=== PATIENT | female | born 1950 | race African-American/Black ===

== ENCOUNTER → 2017-01-08 | Outpatient (CLI) | payer MEDICARE ==
[2013-11-08 10:34] VITALS: BP 161/82
[~2017-01-08] MED LIST: ATEN100T PO; CLON0.2T PO; DICL50TA4 PO; DIPH-426 PO; DULO30CA2 PO; HYDR25TA9 PO; LOSA100T6 PO; MIRT15TA3 PO; PRAV40TA2 PO; PYRI60TA PO; TIZA2CAP PO
--- NOTE | 2017-01-08 12:01 | RAD ---
APPROVED REPORT Patient Location: OUT-PATIENT Indications Uncontrolled HTN Renal Artery Doppler Right Renal Artery Left Renal Arter y Proximal 150.0/32.0 cm/secProximal 89.0/23.0 cm/sec Mid 128.0/28.0 cm/secMid 147.0/32.0 cm/sec Distal 187.0/56.0 cm/secDistal 123.0/26.0 cm/sec Renal/Aorta Ratio 1.90Renal/Aorta Ratio 1.50 Prox. Resistive Index 0.78Prox. Resistive Index 0.75 Mid Resistive Index 0.78Mid Resistive Index 0.79 Distal Resistive Index 0.70Distal Resistive Index 0.79 Rt. Segmental A. 23.0/9.0 cm/secLt. Segmental A. 40.0/13.0 cm/sec Renal Measurements RightLeft Kidney Ebehnu52.5 cm cmKidney Qddfxg26 cm cm Right Additional FindingsLeft Additional Findings Findings Grayscale images of the bilateral kidneys do not reveal any evidence of hypertrophy. Spectral waveforms and color Doppler of the aorta and renal arteries were obtained with velocities as noted above. The renal to aortic ratios are grossly normal and velocities are also within normal bustos its at less than 180 cm/s. Critical Notification Critical Value: No <Conclusion> No evidence of renal artery stenosis.
--- NOTE | 2017-01-08 12:06 | CARD ---
APPROVED REPORT EXAM: Two-dimensional and M-mode echocardiogram with Doppler and color Doppler. Other Information Quality : Good INDICATION Hypertension/HCVD 2D DIMENSIONS Left Atrium(2D)3.9 (1.6-4.0cm)IVSd1.4 (0.7-1.1cm) Aortic Root(2D)2.9 (2.0-3.7cm)LVDd4.4 (3.9-5.9cm) LVOT Diameter2.0 (1.8-2.4cm)PWd1.4 (0.7-1.1cm) LVDs2.9 (2.5-4.0cm)FS (%) 34.3 % SV55.1 mlLVEF(%)63.6 (>50%) Aortic Valve AoV Peak Israel.199.1cm/sAoV VTI40.2cm AO Peak GR.15.9mmHgLVOT Peak Israel.189.3cm/s AO Mean GR.8mmHgAVA (VMAX)2.85cm2 APARNA (VTI)3.26iz1XJ P 1/2 Ghsc070yg Mitral Valve MV E Kdgtuwtd91.6cm/sMV DECEL PKGS253xl MV A Jcwaqnmc25.8cm/sE/A Ratio0.5 Tricuspid Valve TR P. Tdfrlrfs056lz/sRAP DXFBWKVA1kmXe TR Peak Gr.92kuIaNBRO99seJq LEFT VENTRICLE The left ventricle is normal size. There is moderate concentric left ventricular hypertrophy. Left ve ntricle systolic function is normal. The Ejection Fraction is 55-60%. There is normal LV segmental wa ll motion. Transmitral Doppler flow pattern is abnormal. RIGHT VENTRICLE The right ventricle is normal size. The right ventricular systolic function is normal. ATRIA The left atrium size is normal. The right atrium size is normal. The interatrial septum is intact wit h no evidence for an atrial septal defect or patent foramen ovale as noted on 2-D or Doppler imaging. AORTIC VALVE The aortic valve is sclerotic but opens well. Doppler and Color Flow revealed mild aortic regurgitati on. There is no significant aortic valvular stenosis. MITRAL VALVE The mitral valve is calcified but opens well. There is no evidence of mitral valve prolapse. There is no mitral valve stenosis. Doppler and Color-flow revealed mild mitral regurgitation. TRICUSPID VALVE The tricuspid valve is normal in structure and function. Doppler and Color Flow revealed mild to mode rate tricuspid regurgitation. There is mild pulmonary hypertension. The PA pressure was estimated at 43 mmHg. There is no tricuspid valve prolapse or vegetation. There is no tricuspid valve stenosis. PULMONIC VALVE Doppler and Color Flow revealed no pulmonic valvular regurgitation. There is no pulmonic valvular prudence nosis. GREAT VESSELS The aortic root is normal in size. The ascending aorta is normal in size. The IVC is normal in size a nd collapses >50% with inspiration. PERICARDIAL EFFUSION There is no pleural effusion. There is no evidence of significant pericardial effusion. Critical Notification Critical Value: No <Conclusion> Left ventricle systolic function is normal. The Ejection Fraction is 55-60%. There is normal LV segmental wall motion. Doppler and Color Flow revealed mild aortic regurgitation. Doppler and Color-flow revealed mild mitral regurgitation. Doppler and Color Flow revealed mild to moderate tricuspid regurgitation. There is mild pulmonary hyp ertension. The PA pressure was estimated at 43 mmHg.
== END | disposition home or self-care (01) ==
LOC: US 09:34
PROVIDERS: ATTEND Internal Medicine Cardiovascular Disease
DX: I08.3 Combined rheumatic disorders of mitral, aortic and tricuspid valves (principal); I10 Essential (primary) hypertension; I27.20 Pulmonary hypertension, unspecified
CPT/HCPCS: 93306; 93975

== ENCOUNTER → 2018-02-25 | Outpatient (CLI) | payer MEDICARE, OTHER ==
[2013-11-08 10:34] VITALS: BP 161/82
[~2018-02-25] MED LIST changes: +HYDR-2145 PO; -HYDR25TA9 PO; +LOSA100T14 PO; -LOSA100T6 PO
--- NOTE | 2018-02-25 13:06 | CARD ---
MR#: [id number] Date of Study: 02/25/2018 Ordering Physician: SCOTTY SNOW, Referring Physician: SCOTTY SNOW, Tech: Hannah Moran APPROVED REPORT EXAM: Two-dimensional and M-mode echocardiogram with Doppler and color Doppler. Other Information Quality : AverageHR: 55bpm INDICATION Valvular Heart Disease RISK FACTORS Hypertension Hyperlipidemia Smoking 2D DIMENSIONS RVDd3.0 (2.9-3.5cm)Left Atrium(2D)3.5 (1.6-4.0cm) IVSd1.2 (0.7-1.1cm)Aortic Root(2D)3.5 (2.0-3.7cm) LVDd4.4 (3.9-5.9cm)LVOT Diameter2.1 (1.8-2.4cm) PWd1.5 (0.7-1.1cm)LVDs2.6 (2.5-4.0cm) FS (%) 39.2 %SV59.9 ml LVEF(%)69.9 (>50%) Aortic Valve AoV Peak Israel.180.9cm/sAoV VTI39.1cm AO Peak GR.13.1mmHgLVOT Peak Israel.136.9cm/s LVOT VTI 30.36cmAO Mean GR.6mmHg APARNA (VMAX)1.52cz1EKT (VTI)2.69cm2 AI P 1/2 Dunl925if Mitral Valve MV E Xlrdnzmr44.1cm/sMV E Peak Gr.132mmHg MV DECEL ZBOO712vxYQ A Nyasqwoc350.1cm/s MV GIW12uuU/A Ratio0.6 MVA (PHT)2.29cm2 TDI E/Lateral E'13.6E/Medial E'13.9 Pulmonary Valve PV Peak Yjfqdwpe08.1cm/sPV Peak Grad.4mmHg Tricuspid Valve TR P. Funfzkdk103oq/sRAP NSKLZOHD5kiWc TR Peak Gr.38svDjXYMN82iuVa Pulmonary Vein S1 Vagshfhr85.4cm/sD2 Dbjrpigd62.4cm/s PVa doualdoq402velw LEFT VENTRICLE The left ventricle is normal size. There is moderate concentric left ventricular hypertrophy. The lef t ventricular systolic function is normal and the ejection fraction is within normal range. The Eject ion Fraction is >55%. There is normal LV segmental wall motion. Transmitral Doppler flow pattern is G rade I-abnormal relaxation pattern. RIGHT VENTRICLE The right ventricle is normal size. There is normal right ventricular wall thickness. The right ventr icular systolic function is normal. ATRIA The left atrium size is normal. The right atrium size is normal. The interatrial septum is intact wit h no evidence for an atrial septal defect or patent foramen ovale as noted on 2-D or Doppler imaging. AORTIC VALVE The aortic valve is normal in structure and function. Doppler and Color Flow revealed moderate aortic regurgitation. There is no significant aortic valvular stenosis. MITRAL VALVE The mitral valve is thickened but opens well. There is no evidence of mitral valve prolapse. There is no mitral valve stenosis. Doppler and Color-flow revealed trace to mild mitral regurgitation. TRICUSPID VALVE The tricuspid valve is not well visualized. Doppler and Color Flow revealed trace to mild tricuspid r egurgitation. There is no tricuspid valve stenosis. PULMONIC VALVE The pulmonic valve is not well visualized. Doppler and Color Flow revealed trace pulmonic valvular re gurgitation. There is no pulmonic valvular stenosis. GREAT VESSELS The aortic root is normal in size. The IVC is normal in size and collapses >50% with inspiration. PERICARDIAL EFFUSION There is no evidence of significant pericardial effusion. Critical Notification Critical Value: No <Conclusion> The left ventricular systolic function is normal and the ejection fraction is within normal range. Th e Ejection Fraction is >55%. There is normal LV segmental wall motion. Doppler and Color Flow revealed moderate aortic regurgitation. There is mild systolic anterior motion of the anterior mitral leaflet, that may be lead to turbulent flow in the LVOT. Signed by : Scotty Snow, Electronically Approved : 02/25/2018 13:04:29
== END | disposition home or self-care (01) ==
LOC: ECHO 10:05
PROVIDERS: ATTEND Internal Medicine Cardiovascular Disease
DX: I35.1 Nonrheumatic aortic (valve) insufficiency (principal); I10 Essential (primary) hypertension; E78.5 Hyperlipidemia, unspecified; F17.200 Nicotine dependence, unspecified, uncomplicated
CPT/HCPCS: 93306

== ENCOUNTER → 2019-02-15 | Outpatient (CLI) | payer MEDICARE, OTHER ==
[2013-11-08 10:34] VITALS: BP 161/82
--- NOTE | 2019-02-15 14:46 | CARD ---
MR#: [id number] Date of Study: 02/15/2019 Ordering Physician: SCOTTY DOMINGUEZ, Referring Physician: SCOTTY DOMINGUEZ, Tech: Kristine Nesbitt [facility] APPROVED REPORT EXAM: Two-dimensional and M-mode echocardiogram with Doppler and color Doppler. Other Information Quality : Good INDICATION Aortic Insufficiency 2D DIMENSIONS Left Atrium(2D)3.8 (1.6-4.0cm)IVSd1.7 (0.7-1.1cm) Aortic Root(2D)2.8 (2.0-3.7cm)LVDd4.4 (3.9-5.9cm) LVOT Diameter1.9 (1.8-2.4cm)PWd1.4 (0.7-1.1cm) LVDs2.9 (2.5-4.0cm)FS (%) 30.0 % SV50.3 mlLVEF(%)60.0 (>50%) Aortic Valve AoV Peak Israel.204.5cm/sAoV VTI37.3cm AO Peak GR.16.7mmHgLVOT VTI 20.53cm AO Mean GR.10mmHgAVA (VTI)2.20cm2 Mitral Valve MV E Ijkaepnw58.0cm/sMV DECEL KOGW678jp MV A Qfibujdh21.4cm/sE/A Ratio1.1 TDI Lateral E' P. V5.87cm/sMedial E' P. V6.68cm/s E/Lateral E'16.4E/Medial E'14.4 Tricuspid Valve TR P. Wexscbdn330pt/sRAP NGRKBJMS2ksAo TR Peak Gr.44tbEaJYKY21mgSf LEFT VENTRICLE The left ventricle is normal size. There is mild to moderate concentric left ventricular hypertrophy. The left ventricular systolic function is normal. The Ejection Fraction is 55-60%. There is normal L V segmental wall motion. RIGHT VENTRICLE The right ventricle is normal size. The right ventricular systolic function is normal. ATRIA The left atrium size is normal. The right atrium size is normal. The interatrial septum is intact wit h no evidence for an atrial septal defect or patent foramen ovale as noted on 2-D or Doppler imaging. AORTIC VALVE The aortic valve is calcified but opens well. Doppler and Color Flow revealed moderate aortic regurgi tation. There is no significant aortic valvular stenosis. MITRAL VALVE The mitral valve is calcified but opens well. Mitral annular calcification is mild. There is no evide nce of mitral valve prolapse. There is no mitral valve stenosis. Doppler and Color-flow revealed mild mitral regurgitation. TRICUSPID VALVE The tricuspid valve is normal in structure and function. Doppler and Color Flow revealed trace to mil d tricuspid regurgitation. There is moderate pulmonary hypertension. The PA pressure was estimated at 51 mmHg. There is no tricuspid valve stenosis. PULMONIC VALVE The pulmonic valve is not well visualized. Doppler and Color Flow revealed trace pulmonic valvular re gurgitation. There is no pulmonic valvular stenosis. GREAT VESSELS The aortic root is normal in size. The ascending aorta is normal in size. The IVC is normal in size a nd collapses >50% with inspiration. PERICARDIAL EFFUSION There is no evidence of significant pericardial effusion. Critical Notification Critical Value: No <Conclusion> The left ventricular systolic function is normal. The Ejection Fraction is 55-60%. There is normal LV segmental wall motion. Moderate aortic regurgitation. Mild mitral regurgitation. Trace to mild tricuspid regurgitation. The PA pressure was estimated at 51 mmHg. There is no evidence of significant pericardial effusion. Signed by : Paulo Womack, Electronically Approved : 02/15/2019 14:45:29
--- NOTE | 2019-02-15 17:31 | RAD ---
MR#: [id number] Date of Study: 02/15/2019 Ordering Physician: SCOTTY DOMINGUEZ, Referring Physician: SCOTTY DOMINGUEZ, Tech: Kimo Weston MBA, RDMS, RVT, RDCS, RTR APPROVED REPORT Patient Location: OUT-PATIENT Indications Rest Pain: VELOCITY AND DOPPLER WAVEFORM ANALYSIS RIGHT cm/secWaveformSeverity LEFT cm/secWaveform Severity dCFA 339.0MonophasicdCFA 435.0Monophasic Prof Fem Art. 140.0Prof Fem Art. 463.0Monophasic Fem Art Prox. 33.0MonophasicFem Art Prox. Occluded Fem Art Mid. 62.0MonophasicFem Art Mid. Occluded Fem Art Dist. 59.0MonophasicFem Art Dist. 58.0Monophasic Pop Art(Fossa) 59.0MonophasicPop Art(AK) 42.0Monophasic MANAGEMENT INSTRUCTOR Prox. 33.0MonophasicPTA Prox. 22.0Monophasic MANAGEMENT INSTRUCTOR Dist. 28.0MonophasicPTA Dist. 51.0Monophasic ERIC Prox. 9.0MonophasicATA Prox. 23.0Monophasic DPA 15MonophasicDPA 24Monophasic Image Findings Grayscale images of the bilateral lower extremity arterial vessels demonstrate moderate to severe dif fuse plaque mostly localized to the above knee vessels. On the right side there are elevated velocities in the common femoral artery suggestive greater than 75% stenosis. Below the knee there are monophasic diminished waveforms consistent with more proximal obstruction. On the left side there is again likely a greater than 75% stenosis involving the common femoral and p rofunda femoral arteries. The proximal to mid SFA is occluded with reconstitution distal in the saphe nous popliteal junction with monophasic waveforms from the popliteal segment to the below-knee vessel s likely due to more proximal disease somewhat to the right side. Critical Notification Critical Value: No <Conclusion> 1. 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 Signed by : Scotty Dominguez, Electronically Approved : 02/15/2019 17:30:53
== END | disposition home or self-care (01) ==
LOC: ECHO 12:47
PROVIDERS: ATTEND Internal Medicine Cardiovascular Disease
DX: I08.3 Combined rheumatic disorders of mitral, aortic and tricuspid valves (principal); I70.293 Other atherosclerosis of native arteries of extremities, bilateral legs; I27.20 Pulmonary hypertension, unspecified
CPT/HCPCS: 93306; 93925

== ENCOUNTER → 2019-03-02 | Day surgery (SDC) | payer MEDICARE ==
[~2019-03-02] MED LIST changes: +CARV25TA2 PO; +HYDROmorphone 2 MG/ML VIAL IV PRN; +IRBE300T23 PO; +IV RINGERS,LACTATED 1000ML 1,000 ML IV SCH; +MORPHINE SULFATE 2 MG/ML VIAL. IV PRN; +ONDANSETRON PF 4 MG/2 ML VIAL. IV PRN; +PROCHLORPERAZINE 10 MG/2 ML VIAL. IV PRN; +PROPOFOL 20 ML IV ONE; +fentaNYL PF VIAL 100 MCG/2 ML VIAL IV PRN
[2019-03-02 13:05] VITALS: BP 171/76
--- NOTE | 2019-03-06 13:07 | PATHOLOGY ---
[facility] Accession Number: [id number] . 01 Material submitted: . colon - ASCENDING COLON POLYP. Modifiers: ascending . 01 Clinical history: . Screening; polyp . 02 Diagnosis: Colon, ascending, biopsy: - Adenomatous colonic mucosa, two fragments. - Hyperplastic colonic mucosa, three fragments. . (SKM:mm; 03/06/2019) [facility] 03/06/2019 1033 Local . 02 Electronically signed: . Gumaro Navarro MD, Pathologist NPI- [id number] . 01 Gross description: . The specimen is received in formalin, labeled "Eusebia Mcgregor, ascending colon polyp". Received are five segments of pale dupont soft tissue ranging in size from 0.1 to 0.9 cm in maximum dimensions. The specimen is submitted entirely in cassette A1. ([employer]; 03/03/2019) QA/QA 03/03/2019 1102 Local . 02 Pathologist provided ICD-10: Z12.11 . 02 CPT . 620121 Specimen Comment: A courtesy copy of this report has been sent to [phone] Specimen Comment: [id number] Specimen Comment: Report sent to / DR PRITCHARD Performed at: 01 [facility] [address], [place], [place] [id number] MD Vitaly Gómez MD Phone: [phone] Performed at: 02 [facility] [address], [place] [id number] MD Avery Mckee MD Phone: [phone]
== END | disposition home or self-care (01) ==
LOC: ENDOS 11:05
PROVIDERS: ATTEND Internal Medicine Gastroenterology
DX: Z12.11 Encounter for screening for malignant neoplasm of colon (principal); D12.2 Benign neoplasm of ascending colon; K64.0 First degree hemorrhoids; K57.30 Diverticulosis of large intestine without perforation or abscess without bleeding; K63.89 Other specified diseases of intestine; I10 Essential (primary) hypertension; E78.00 Pure hypercholesterolemia, unspecified; F17.210 Nicotine dependence, cigarettes, uncomplicated; Z79.899 Other long term (current) drug therapy; Z85.850 Personal history of malignant neoplasm of thyroid; Z98.890 Other specified postprocedural states; Z82.49 Family history of ischemic heart disease and other diseases of the circulatory system; Z83.3 Family history of diabetes mellitus
CPT/HCPCS: 45380; 88305; J2704